=== PATIENT | male | born 1940 | race Caucasian/White ===

== ENCOUNTER 2023-10-02 23:15 | Emergency (ER) | payer MEDICARE, OTHER ==
[~2023-10-02] VITALS: Ht 180.3 cm; Wt 78.9 kg
[2023-10-03] MEDS ORDERED: KETOROLAC TROMETHAMINE 15 MG/ML VIAL IV ONE
[2023-10-03 00:39] LABS: BASOPHILS % (AUTO) 0.6 % (0.0-2.0); EOSINOPHILS % (AUTO) 0.2 % (0.0-6.0); HEMATOCRIT 38 % (39-51); HEMOGLOBIN 12.4 g/dL (13.5-17.5); LYMPHOCYTES # (AUTO) 0.7 K/uL (0.8-4.8); MEAN CORPUSCULAR HEMOGLOBIN 29 PG (26.0-33.0); MEAN CORPUSCULAR HGB CONC 33 g/dl (31.0-36.0); MEAN CORPUSCULAR VOLUME 87 fL (80-96); MONOCYTES # (AUTO) 0.6 K/uL (0.1-1.30); MONOCYTES % (AUTO) 13.2 % (2.0-12.0); NEUTROPHILS # (AUTO) 3.2 K/uL (1.8-8.9); PLATELET COUNT (AUTO) 216 K/uL (150-450); RED CELL DISTRIBUTION WIDTH 14.1 % (11.5-15.0); WHITE BLOOD COUNT (AUTO) 4.5 K/uL (4.3-11.0)
[2023-10-03] MEDS ORDERED: KETOROLAC TROMETHAMINE 15 MG/ML VIAL ONE (00:40)
[2023-10-03] MEDS ORDERED: ACETAMINOPHEN ES 500 MG TABLET ONE (00:41)
[2023-10-03 00:52] LABS: ALBUMIN 2.6 g/dL (3.4-5.0); BILIRUBIN,TOTAL 0.6 mg/dL (0.2-1.0); CALCIUM, SERUM 9.3 mg/dL (8.5-10.1); CREATININE 1.1 mg/dL (0.6-1.3); TOTAL PROTEIN, SERUM 6.8 g/dL (6.4-8.2)
[2023-10-03 00:57] LABS: LACTIC ACID 1.4 mmol/L (0.4-2.0)
[2023-10-03] MEDS ORDERED: ACETAMINOPHEN ES 500 MG TABLET PO ONE (01:00)
[2023-10-03 02:38] VITALS: BP 139/72; TEMP 99.8; O2SAT 94
[2023-10-03 20:25] LABS: ABG BASE EXCESS 3.2 mmol/L; ABG OXYGEN SATURATION 94.4 % (92.0-98.5); ABG PCO2 30.7 mmHg (35.0-45.0); ABG PH 7.532 (7.350-7.450); ABG PO2 64.2 mmHg (75.0-100.0); ABG TOTAL HEMOGLOBIN 13.5 G/dL (13.5-18.0); AaDO2 48.8 mmHg; COHb 0.4 % (0.5-1.5); MetHb 0.3 % (0.0-1.5); O2Hb 93.7 % (94.0-97.0); SITE, ABG Left Radial; VENT MODE, BG room air
== END 2023-10-03 03:42 ==
LOC: ER 23:27
DX: U07.1 COVID-19 (principal); I10 Essential (primary) hypertension
CPT/HCPCS: 99285; 71045; 96372; 93005; 82803; 87804 ×2; 85025; 87040; 83605; 36415; 80053; 36600 ×2; J1885

== ENCOUNTER 2023-10-06 21:06 | Inpatient (IN) | payer MEDICARE, OTHER ==
[~2023-10-06] VITALS: Ht 175.3 cm; Wt 75.3 kg
[2023-10-06] MEDS ORDERED: ACETAMINOPHEN ES 500 MG TABLET PO ONE (22:00)
[2023-10-06] MEDS ORDERED: ACETAMINOPHEN ES 500 MG TABLET ONE (22:03)
[2023-10-06 22:40] LABS: BASOPHILS # (AUTO) 0.1 K/uL (0.0-0.2); BASOPHILS % (AUTO) 1.7 % (0.0-2.0); HEMATOCRIT 39 % (39-51); HEMOGLOBIN 12.9 g/dL (13.5-17.5); LYMPHOCYTES # (AUTO) 0.5 K/uL (0.8-4.8); MEAN CORPUSCULAR HEMOGLOBIN 29 PG (26.0-33.0); MEAN CORPUSCULAR HGB CONC 33 g/dl (31.0-36.0); MEAN CORPUSCULAR VOLUME 86 fL (80-96); MONOCYTES # (AUTO) 0.3 K/uL (0.1-1.30); MONOCYTES % (AUTO) 4.6 % (2.0-12.0); NEUTROPHILS # (AUTO) 6.1 K/uL (1.8-8.9); NEUTROPHILS % (AUTO) 86.7 % (43.0-81.0); PLATELET COUNT (AUTO) 306 K/uL (150-450); RED BLOOD CELL COUNT(AUTO) 4.49 MIL/uL (4.5-6.0); RED CELL DISTRIBUTION WIDTH 14.1 % (11.5-15.0)
[2023-10-06 22:44] LABS: CALCIUM, SERUM 8.8 mg/dL (8.5-10.1); CARBON DIOXIDE 27 mmol/L (21-32); CHLORIDE 97 mmol/L (98-107); CREATININE 1.2 mg/dL (0.6-1.3); GLUCOSE 111 mg/dL (74-106); POTASSIUM 4.1 mmol/L (3.5-5.1); SODIUM SERUM 133 mmol/L (136-145); UREA NITROGEN, BLOOD 15 mg/dL (7-18)
[2023-10-06 22:46] LABS: INR 1.26 (0.91-1.10); PARTIAL THROMBOPLASTIN TIME 34.2 SEC (24.3-34.3); PROTHROMBIN TIME 13.2 SECS (9.2-11.1)
[2023-10-06 22:50] LABS: ALANINE AMINOTRANSFERASE 32 U/L (12-78); ALBUMIN 2.2 g/dL (3.4-5.0); ALKALINE PHOSPHATASE 52 U/L (46-116); ASPARTATE AMINOTRANSFERASE 47 U/L (15-37); BILIRUBIN,DIRECT 0.3 mg/dL (0.0-0.2); BILIRUBIN,TOTAL 0.8 mg/dL (0.2-1.0); TOTAL PROTEIN, SERUM 6.5 g/dL (6.4-8.2)
[2023-10-07] MEDS ORDERED: IV NS 0.9% 1,000 ML BAG IV ONE (00:30)
[2023-10-07] MEDS ORDERED: ONDANSETRON HCL/PF 4 MG/2 ML VIAL IVP PRN (05:00)
[2023-10-07] MEDS ORDERED: ACETAMINOPHEN 325 MG TABLET PO PRN (05:00)
[2023-10-07] MEDS ORDERED: hydrALAZINE HCL IV 20 MG VIAL IV PRN (05:00)
[2023-10-07] MEDS ORDERED: MORPHINE SULFATE INJ 2 MG/ML DISP.SYRIN IV PRN (05:00)
[2023-10-07] MEDS ORDERED: ALBUTEROL FS 2.5 MG/0.5 ML VIAL.NEB NEB PRN ×2 (05:00→09:00)
[2023-10-07] MEDS ORDERED: dexaMETHasone SOD PHOSPHATE 10 MG/ML VIAL IV ONE (05:00)
[2023-10-07] MEDS: IPRATROPIUM/ALBUTEROL INHALER IH SCH ×3 (06:00→18:30)
[2023-10-07] MEDS: AZITHROMYCIN 500 MG in IV D5W 250 ML IV SCH (06:30)
[2023-10-07] MEDS ORDERED: dexaMETHasone SOD PHOSPHATE 1 ML ONE (06:35)
[2023-10-07] MEDS ORDERED: AZITHROMYCIN 500 MG VIAL ONE (06:35)
[2023-10-07] MEDS ORDERED: LOSA100T31 PO (09:04)
[2023-10-07] MEDS ORDERED: TIMO5DRO31 EACHEYE (09:04)
[2023-10-07] MEDS ORDERED: LATA2.5D15 EACHEYE (09:04)
[2023-10-07] MEDS ORDERED: SACC250C PO (09:04)
[2023-10-07] MEDS ORDERED: SAW160CA3 PO (09:04)
[2023-10-07] MEDS: dexaMETHasone SOD PHOSPHATE 10 MG/ML VIAL IV SCH (11:18)
[2023-10-07] MEDS: HEPARIN SODIUM, PORCINE 5000 UNITS/1 ML VIAL SQ SCH ×2 (11:19→21:44)
[2023-10-07 11:42] LABS: C-REACTIVE PROTEIN 16.08 mg/dL (0.0-0.30)
[2023-10-07] MEDS: CEFEPIME 2 GM in IV D5W 100 ML IV SCH ×2 (11:50→21:38)
[2023-10-07 12:00] VITALS: BP 108/60; TEMP 98.4; O2SAT 97
[2023-10-07] MEDS ORDERED: REMDESIVIR (CHARGED) 200 MG, *LOADING DOSE 1 EA in IV NS 0.9% 210 ML IV ONE (16:00)
[2023-10-07 20:00] VITALS: BP 116/59; TEMP 99.2; O2SAT 92
[2023-10-08] VITALS: BP 118/59; TEMP 99.1; O2SAT 94
[2023-10-08 04:00] VITALS: BP 122/58; TEMP 99; O2SAT 94
[2023-10-08] MEDS: AZITHROMYCIN 500 MG in IV D5W 250 ML IV SCH (04:37)
[2023-10-08 06:55] LABS: BASOPHILS % (AUTO) 0.1 % (0.0-2.0); HEMATOCRIT 37 % (39-51); HEMOGLOBIN 12.1 g/dL (13.5-17.5); LYMPHOCYTES # (AUTO) 0.7 K/uL (0.8-4.8); MEAN CORPUSCULAR HEMOGLOBIN 28 PG (26.0-33.0); MEAN CORPUSCULAR HGB CONC 33 g/dl (31.0-36.0); MEAN CORPUSCULAR VOLUME 87 fL (80-96); MONOCYTES # (AUTO) 0.4 K/uL (0.1-1.30); MONOCYTES % (AUTO) 3.3 % (2.0-12.0); NEUTROPHILS # (AUTO) 10.6 K/uL (1.8-8.9); NEUTROPHILS % (AUTO) 90.6 % (43.0-81.0); PLATELET COUNT (AUTO) 339 K/uL (150-450); RED BLOOD CELL COUNT(AUTO) 4.28 MIL/uL (4.5-6.0); RED CELL DISTRIBUTION WIDTH 13.9 % (11.5-15.0); WHITE BLOOD COUNT (AUTO) 11.7 K/uL (4.3-11.0)
[2023-10-08 07:32] LABS: ALBUMIN 1.8 g/dL (3.4-5.0); BILIRUBIN,TOTAL 0.4 mg/dL (0.2-1.0); CALCIUM, SERUM 8.5 mg/dL (8.5-10.1); CREATININE 1.1 mg/dL (0.6-1.3); PHOSPHORUS 2.8 mg/dL (2.5-4.9); POTASSIUM 3.8 mmol/L (3.5-5.1); TOTAL PROTEIN, SERUM 5.9 g/dL (6.4-8.2)
[2023-10-08 08:00] VITALS: BP 111/57; TEMP 98.1; O2SAT 94
[2023-10-08] MEDS: CEFEPIME 2 GM in IV D5W 100 ML IV SCH ×2 (08:34→21:31)
[2023-10-08] MEDS: dexaMETHasone SOD PHOSPHATE 10 MG/ML VIAL IV SCH (08:35)
[2023-10-08] MEDS: HEPARIN SODIUM, PORCINE 5000 UNITS/1 ML VIAL SQ SCH ×2 (08:36→21:27)
[2023-10-08] MEDS ORDERED: dexaMETHasone SOD PHOSPHATE 6 MG in IV D5W 50 ML IV SCH (09:00)
[2023-10-08] MEDS: IPRATROPIUM/ALBUTEROL INHALER IH SCH ×2 (11:20→17:22)
[2023-10-08 12:00] VITALS: BP 108/61; TEMP 98.3; O2SAT 94
[2023-10-08] MEDS: REMDESIVIR (CHARGED) 100 MG in IV NS 0.9% 100 ML IV SCH (15:12)
[2023-10-08 16:00] VITALS: BP 112/67; TEMP 98.5; O2SAT 96
[2023-10-08 21:03] VITALS: BP 112/63; TEMP 97.6
[2023-10-09 00:26] VITALS: BP 112/63; TEMP 97.6; O2SAT 96
[2023-10-09] MEDS: AZITHROMYCIN 500 MG in IV D5W 250 ML IV SCH (04:34)
[2023-10-09 04:38] VITALS: BP 114/72; TEMP 97.8; O2SAT 95
[2023-10-09 06:54] LABS: ABG BASE EXCESS 0.5 mmol/L; ABG OXYGEN SATURATION 90.9 % (92.0-98.5); ABG PCO2 30.4 mmHg (35.0-45.0); ABG PH 7.495 (7.350-7.450); ABG PO2 55.9 mmHg (75.0-100.0); ABG TOTAL HEMOGLOBIN 12.9 G/dL (13.5-18.0); AaDO2 136.7 mmHg; COHb 0.5 % (0.5-1.5); MetHb 0.2 % (0.0-1.5); O2Hb 90.3 % (94.0-97.0); SITE, ABG Right Radial; VENT MODE, BG Nasal Cannula
[2023-10-09 08:00] VITALS: BP 127/74; TEMP 97.7; O2SAT 92
[2023-10-09] MEDS: dexaMETHasone SOD PHOSPHATE 10 MG/ML VIAL IV SCH (08:35)
[2023-10-09] MEDS: HEPARIN SODIUM, PORCINE 5000 UNITS/1 ML VIAL SQ SCH ×2 (08:40→20:59)
[2023-10-09] MEDS: CEFEPIME 2 GM in IV D5W 100 ML IV SCH ×2 (09:44→20:58)
[2023-10-09 12:00] VITALS: BP 118/67; TEMP 97.7; O2SAT 91
[2023-10-09] MEDS: IPRATROPIUM/ALBUTEROL INHALER IH SCH ×3 (13:11→23:16)
[2023-10-09 16:00] VITALS: BP 129/70; TEMP 97.3; O2SAT 94
[2023-10-09] MEDS: REMDESIVIR (CHARGED) 100 MG in IV NS 0.9% 100 ML IV SCH (16:49)
[2023-10-09 20:00] VITALS: BP 141/65; TEMP 97.2; O2SAT 94
[2023-10-10] VITALS: BP 140/68; TEMP 98; O2SAT 95
[2023-10-10 04:00] VITALS: BP 138/71; TEMP 97.8; O2SAT 95
[2023-10-10] MEDS: IPRATROPIUM/ALBUTEROL INHALER IH SCH ×3 (05:14→18:03)
[2023-10-10] MEDS: AZITHROMYCIN 500 MG in IV D5W 250 ML IV SCH (05:14)
[2023-10-10 08:00] VITALS: BP 131/65; TEMP 97.3; O2SAT 93
[2023-10-10] MEDS: CEFEPIME 2 GM in IV D5W 100 ML IV SCH ×3 (08:33→21:27)
[2023-10-10] MEDS: HEPARIN SODIUM, PORCINE 5000 UNITS/1 ML VIAL SQ SCH ×2 (08:33→21:28)
[2023-10-10] MEDS: dexaMETHasone SOD PHOSPHATE 10 MG/ML VIAL IV SCH (08:33)
[2023-10-10 12:00] VITALS: BP 145/91; TEMP 97.4; O2SAT 94
[2023-10-10 13:28] LABS: INR 1.35 (0.91-1.10); PARTIAL THROMBOPLASTIN TIME 27.7 SEC (24.3-34.3)
[2023-10-10 13:36] LABS: ALBUMIN 2.1 g/dL (3.4-5.0); BILIRUBIN,DIRECT 0.2 mg/dL (0.0-0.2); BILIRUBIN,TOTAL 0.6 mg/dL (0.2-1.0); CALCIUM, SERUM 9.1 mg/dL (8.5-10.1); CREATININE 0.9 mg/dL (0.6-1.3); TOTAL PROTEIN, SERUM 6.5 g/dL (6.4-8.2)
[2023-10-10] MEDS: REMDESIVIR (CHARGED) 100 MG in IV NS 0.9% 100 ML IV SCH (15:55)
[2023-10-10 16:00] VITALS: BP 137/62; TEMP 97.3; O2SAT 94
[2023-10-10 20:00] VITALS: BP 135/66; TEMP 97.5; O2SAT 92
[2023-10-11] VITALS: BP 128/71; TEMP 97.9; O2SAT 97
[2023-10-11] MEDS: IPRATROPIUM/ALBUTEROL INHALER IH SCH ×4 (00:14→17:07)
[2023-10-11 04:00] VITALS: BP 128/71; TEMP 97.9; O2SAT 97
[2023-10-11] MEDS: AZITHROMYCIN 500 MG in IV D5W 250 ML IV SCH (05:47)
[2023-10-11 08:00] VITALS: BP 139/79; TEMP 98.2; O2SAT 92
[2023-10-11] MEDS: CEFEPIME 2 GM in IV D5W 100 ML IV SCH ×2 (08:53→20:49)
[2023-10-11] MEDS: dexaMETHasone SOD PHOSPHATE 10 MG/ML VIAL IV SCH (08:53)
[2023-10-11] MEDS: HEPARIN SODIUM, PORCINE 5000 UNITS/1 ML VIAL SQ SCH ×2 (08:54→20:50)
[2023-10-11 12:37] VITALS: BP 130/81; TEMP 98.1; O2SAT 93
[2023-10-11 16:00] VITALS: BP 132/72; TEMP 98.1; O2SAT 95
[2023-10-11] MEDS: REMDESIVIR (CHARGED) 100 MG in IV NS 0.9% 100 ML IV SCH (16:54)
[2023-10-11 20:00] VITALS: BP 127/75; TEMP 97.6; O2SAT 94
[2023-10-12] MEDS: IPRATROPIUM/ALBUTEROL INHALER IH SCH ×3 (00:54→12:27)
[2023-10-12 00:57] VITALS: BP 153/89; TEMP 97; O2SAT 95
[2023-10-12 05:26] VITALS: BP 141/80; TEMP 97.5; O2SAT 99
[2023-10-12 08:00] VITALS: BP 110/54; TEMP 98.2; O2SAT 94
[2023-10-12] MEDS: dexaMETHasone SOD PHOSPHATE 10 MG/ML VIAL IV SCH (08:50)
[2023-10-12] MEDS: HEPARIN SODIUM, PORCINE 5000 UNITS/1 ML VIAL SQ SCH (08:51)
[2023-10-12] MEDS: CEFEPIME 2 GM in IV D5W 100 ML IV SCH (08:51)
[2023-10-12] MEDS ORDERED: DEXA4TAB PO (09:30)
[2023-10-12] MEDS ORDERED: CEFE2FRO IV (09:30)
[2023-10-12] MEDS ORDERED: Ipratropium/Albuterol Sulfate IH (09:30)
[2023-10-12] MEDS ORDERED: LACT-54 PO (09:30)
[2023-10-12] MEDS ORDERED: ACET325T53 PO (09:30)
[2023-10-12 12:00] VITALS: BP 144/74; TEMP 98.6; O2SAT 94
[2023-10-12] MEDS ORDERED: DOXY100C2 PO (12:33)
[2023-10-12 16:00] VITALS: BP 121/71; TEMP 98.2; O2SAT 92
[2023-10-12] MEDS ORDERED: ENSURE ENLIVE CHOC 237 ML CAN PO SCH (17:00)
== END 2023-10-12 19:16 | DRG 177 ==
LOC: ER 21:18 → TRANSITION 10-07 05:25 → TELE1 10-07 08:52 → MEDSG1 10-12 11:41
PROVIDERS: ADMIT Internal Medicine; ATTEND Nurse Practitioner Acute Care
PROC: XW033E5 Introduction of Remdesivir Anti-infective into Peripheral Vein, Percutaneous Approach, New Technology Group 5 (ICD-10-PCS; principal; 2023-10-07)
DX: U07.1 COVID-19 (principal); E43 Unspecified severe protein-calorie malnutrition; J12.82 Pneumonia due to coronavirus disease 2019; J96.01 Acute respiratory failure with hypoxia; N17.0 Acute kidney failure with tubular necrosis; E87.1 Hypo-osmolality and hyponatremia; I12.9 Hypertensive chronic kidney disease with stage 1 through stage 4 chronic kidney disease, or unspecified chronic kidney disease; F41.9 Anxiety disorder, unspecified; E78.5 Hyperlipidemia, unspecified; E86.0 Dehydration; E88.09 Other disorders of plasma-protein metabolism, not elsewhere classified; N18.2 Chronic kidney disease, stage 2 (mild); Z68.24 Body mass index [BMI] 24.0-24.9, adult
CPT/HCPCS: 36415; 36600; 71045-TC; 80048-TC; 80053-TC; 80076-TC; 82728-TC; 83605-TC; 83735-TC; 84100-TC; 84484-TC; 85025-TC; 85378-TC; 85610-TC; 85730-TC; 86140-TC; 87040-TC; A4216; A4223; A6403; G0378; J0456; J0692; J1100; J1644; J2048; J7030; J7050; J7060